=== PATIENT | male | born 1965 | race Caucasian/White ===

== ENCOUNTER 2017-07-20 11:29 | Inpatient (IN) | payer OTHER ==
[~2017-07-20] VITALS: Ht 175.3 cm; Wt 107.8 kg
[2017-07-20 12:25] LABS: ADD MIUA? YES; BILIRUBIN NEGATIVE; BLOOD NEGATIVE; COLOR YELLOW ((YELLOW)); GLUCOSE (STRIP) NEGATIVE; KETONES NEGATIVE; LEUKOCYTES TRACE; NITRITE NEGATIVE; PROTEIN (STRIP) NEGATIVE; SPECIFIC GRAVITY 1.012 (1.000-1.030); UROBILINOGEN 0.2 MG/DL (0.2-1.0)
[2017-07-20 12:29] LABS: BACTERIA NONE SEEN /HPF; EPITHELIAL CELLS NONE SEEN /HPF; HYALINE CASTS 0-5 /LPF; MUCUS NONE SEEN /LPF; RED BLOOD CELLS 0-5 /HPF (0-5); UCUL ADDED? YES
[2017-07-20 12:33] LABS: ADD MEDTOX COMMENT Y; AMPHETAMINE NEGATIVE (500 ng/mL); BARBITURATES NEGATIVE (200 ng/mL); BENZODIAZEPINES NEGATIVE (150 ng/mL); COCAINE PRESUMPTIVE POSITIVE (150 ng/mL); INTERNAL CONTROLS VALID? YES; METHADONE NEGATIVE (200 ng/mL); METHAMPHETAMINE NEGATIVE (500 ng/mL); OPIATES (MORPHINE) NEGATIVE (100 ng/mL); OXYCODONE NEGATIVE (100 ng/mL); PHENCYCLIDINE NEGATIVE (25 ng/mL); PROPOXYPHENE NEGATIVE (300 ng/mL); THC CANNABINOIDS NEGATIVE (50 ng/mL); TRICYCLIC ANTIDEPRESSANTS NEGATIVE (300 ng/mL)
[2017-07-20 17:39] VITALS: BP 150/88
[2017-07-20 17:42] VITALS: BP 150/88
[2017-07-21 07:53] VITALS: BP 129/83
[2017-07-21] MEDS ORDERED: ABILIFY15 MG PO (12:15)
[2017-07-21] MEDS ORDERED: RITALIN20 MG PO (12:16)
[2017-07-21] MEDS ORDERED: VISTARIL50 MG PO (12:17)
[2017-07-21] MEDS ORDERED: RITALIN5 MG PO (12:17)
[2017-07-21] MEDS ORDERED: CELEXA20 MG PO (12:18)
[2017-07-21] MEDS ORDERED: OMEPRAZOLE20 MG PO (12:18)
[2017-07-21] MEDS ORDERED: ACID CONTROL150 MG PO (12:18)
[2017-07-21] MEDS ORDERED: KLONOPIN1 MG PO (12:19)
[2017-07-21] MEDS ORDERED: DESYREL 150 MG150 MG PO (12:19)
[2017-07-21 15:39] VITALS: BP 148/84
[2017-07-22 01:00] LABS: POINT-OF-CARE METER ID UU14188576
[2017-07-22 07:57] VITALS: BP 124/74
[2017-07-22 15:57] VITALS: BP 140/68
[2017-07-23 07:37] VITALS: BP 109/62
[2017-07-23 16:13] VITALS: BP 132/74
[2017-07-24 07:52] VITALS: BP 135/58
[2017-07-24 15:30] VITALS: BP 132/78
[2017-07-25 07:58] VITALS: BP 106/61
[2017-07-25 15:53] VITALS: BP 119/65
[2017-07-26 07:54] VITALS: BP 113/66
[2017-07-26 15:57] VITALS: BP 123/75
[2017-07-27 09:34] VITALS: BP 123/77
[2017-07-27 15:36] VITALS: BP 130/72
[2017-07-28 08:18] VITALS: BP 113/55
[2017-07-28] MEDS ORDERED: CITALOPRAM HBR20 MG PO (08:55)
[2017-07-28] MEDS ORDERED: ARIPIPRAZOLE10 MG PO (08:55)
[2017-07-28] MEDS ORDERED: LAMICTAL100 MG PO (08:55)
[2017-07-28] MEDS ORDERED: ABILIFY20 MG PO (09:09)
== END 2017-07-28 13:22 | disposition home or self-care (01) | DRG 885 ==
LOC: EME 11:29 → EDOF 16:01 → 1WEST 16:01 → ENRESERV 17:11 → 1WEST 17:28
PROVIDERS: Emergency Medicine; Psychiatry & Neurology Psychiatry
DX: F33.2 Major depressive disorder, recurrent severe without psychotic features (principal); R45.851 Suicidal ideations; F60.9 Personality disorder, unspecified; F14.90 Cocaine use, unspecified, uncomplicated; Z91.81 History of falling; Z72.89 Other problems related to lifestyle
CPT/HCPCS: 80053; 81003; 82948; 84999; 85025; 85027; 87086; 90837; 93005; 97150 GO; 99281; 99285; G0480; Q0177

== ENCOUNTER 2017-10-25 15:07 | Emergency (ER) | payer OTHER ==
[~2017-10-25] VITALS: Ht 170.2 cm; Wt 119.3 kg
[~2017-10-25 15:07] MED LIST: ABILIFY15 MG PO; ABILIFY20 MG PO; ACID CONTROL150 MG PO; ARIPIPRAZOLE10 MG PO; CELEXA20 MG PO; CITALOPRAM HBR20 MG PO; DESYREL 150 MG150 MG PO; KLONOPIN1 MG PO; LAMICTAL100 MG PO; OMEPRAZOLE20 MG PO; RITALIN20 MG PO; RITALIN5 MG PO; VISTARIL50 MG PO
[2017-10-25 17:30] LABS: BASOPHIL (%) 0.6 % (0-1); EOSINOPHIL COUNT 0.3 K/uL (0-0.3); HEMATOCRIT 44.2 % (38.0-50.0); HEMOGLOBIN 15.2 G/DL (12.5-16.6); IMMATURE GRANULOCYTE (%) 1.1 % (0.0-0.7); LYMPHOCYTE (%) 34.8 % (15-42); LYMPHOCYTE COUNT 1.6 K/uL (1.0-2.8); MCH 29.6 PG (29.0-34.0); MCHC 34.4 G/DL (30.0-36.0); MCV 86.2 FL (86-99); MONOCYTE (%) 14.4 % (3-12); MONOCYTE COUNT 0.7 K/uL (0-0.8); NEUTROPHIL (%) 43.1 % (45-76); PLATELET COUNT 246 K/uL (156-360); RBC DIS.WIDTH-CV 12.1 % (11.8-14.6); RBC DIS.WIDTH-SD 38.3 % (39-53); RED BLOOD COUNT 5.13 M/uL (4.00-5.50); WHITE BLOOD COUNT 4.7 K/uL (4.1-10.2)
[2017-10-25 17:32] LABS: D-DIMER ELISA < 150.00 ng/mLDDU (<230)
[2017-10-25 17:36] LABS: CHLORIDE 106 mEq/L (99-109); POTASSIUM 4.3 mEq/L (3.7-5.4); SODIUM 137 mEq/L (136-147)
[2017-10-25 17:38] LABS: GLUCOSE 72 mg/dL (70-99)
[2017-10-25 17:41] LABS: CREATININE 0.9 mg/dL (0.6-1.3); GFR ESTIMATE (CALCULATED) > 59 mL/min/ (58.99-99999)
[2017-10-25 17:42] LABS: UREA NITROGEN (BUN) 13 mg/dL (9-23)
[2017-10-25 17:50] LABS: TROP-I INTERPRETATION NEGATIVE; TROPONIN-I < 0.01 ng/mL (0.0-0.30)
[2017-10-25] MEDS ORDERED: PREDNISONE20 MG PO (18:55)
[2017-10-25] MEDS ORDERED: VENTOLIN HFA18 GM IH (18:55)
[2017-10-25 19:10] VITALS: BP 135/76
== END 2017-10-25 19:11 | disposition home or self-care (01) ==
LOC: EME 15:07
PROVIDERS: Physician Assistant
DX: J45.909 Unspecified asthma, uncomplicated (principal); R06.02 Shortness of breath; F32.9 Major depressive disorder, single episode, unspecified; F17.200 Nicotine dependence, unspecified, uncomplicated; Z96.659 Presence of unspecified artificial knee joint
CPT/HCPCS: 71046; 80048; 84484; 85025; 85379; 93005; 94640; 99281; 99284; J7512